=== PATIENT | female | born 1960 | race Caucasian/White ===

== ENCOUNTER 2017-07-13 03:31 | Observation (INO) | payer OTHER ==
[~2017-07-13] VITALS: Ht 154.9 cm; Wt 63.5 kg
[~2017-07-13 03:31] MED LIST: DITROPAN XL15 M1 PO; LIVALO4 M1 PO; MELOXICAM15 M1 PO; NEXIUM40 M1 PO; PATADAY2.5 ML OU; TYLENOL PM EX-1 EACH PO; UNITHROID88 MCG PO; VITAMIN D1000 UNIT PO
--- NOTE | 2017-07-13 13:57 | Operative Report ---
Operative/Inv Procedure Report Surgery Date: 07/13/17 Name of Procedure: Bilateral breast reduction Liposuction of axillary folds Pre-Operative Diagnosis: Symptomatic macromastia Lipodystropy of axillary folds Post-Operative Diagnosis: Symptomatic macromastic lipodystrophy of axillary folds Estimated Blood Loss: less than 50ml Surgeon/Assembler [employer]: Titus Cho MD Anesthesia: general endotracheal tube Monitors: NA IV Fluids: 1 liter crystalloids Implants: NA Urine Output: NA Drains: NA Specimens: Right breast tissue-322 grams Left breast tissue-348 grams Microbiology: None Tourniquet: NA Complications: None Condition: Stable Operative Indication: 57 yo female with symptomatic macromastic and lipodystrophy of axillary folds presents for bilateral breast reduction, liposuction of axillary folds. The procedure, risks, benefits, and alternatives discussed with patient. The risks discussed included bleeding, infection, pain, scarring, wound dehiscence, wound delay, asymmetry, hematoma, seroma, fat necrosis, and unsatisfactory results. Knowing these risks the patient agreed to the procedure. Knowing these risks the patient agreed to the procedure. Operative/Procedure Note Note: The patient taken to the operating room and placed in supine position. SCD's were placed on the lower extremities. Antibiotics administered. Breasts and lateral chest wall prepped and draped in the usual sterile fashion. Pre-op markings reviewed. The right breast pre-op markings incised. Right superomedial pedicle created with a 42 mm cookie cutter then de-epithelized. Cornejo pattern markings incised. Right breast tissue excised in a C-shaped fashion from medially to laterally. Breast tissue weighed 322 grams and sent to pathology. Wound irrigated. Hemostasis achieved.Triple points from cornejo pattern technique reapproximated with 2-0 silk. Skin edges tailored tacked with lynda. Good contour noted. Attention was then turned to the left breast. Left superomedial pedicle created with a 42 mm cookie cutter then de-epithelized. Cornejo pattern markings incised. Left breast tissue excised in a C-shaped fashion from medially to laterally. Breast tissue weighed 348 grams and sent to pathology. Wound irrigated. Hemostasis achieved.Triple points from the cornejo pattern technique reapproximated with 2-0 silk. Skin edges tailored tacked with lynda. Good contour noted. Next, 200 cc of tumescence solution was injected into the subcutaneous tissue of the left and right axillary folds. Attention was then turned to the incision at the inframammary fold were reapproximated with 3-0 Vicryl in an interrupted fashion followed by a running 4-0 subcuticular closure. Next, the left nipple areolar complex was approximated with 42 mm cookie cutter template on the breast mound measuring 5 cm from the inframammary fold. Skin and minimal breast tissue excised. Nipple areolar complex delivered appeared to be viable, secured with 3-0 monocryl in an interrupted fashion followed by 4-0 monocryl. Attention was then turned to right breast. Incision at the inframammary fold were reapproximated with 3-0 Vicryl in an interrupted fashion followed by a running 4-0 subcuticular closure. Next, right nipple areolar complex approximated with 42 mm cookie cutter template on the breast mound measuring 5 cm from the inframammary fold. Skin and minimal breast tissue excised. Nipple areolar complex delivered appeared to be viable, secured with 3- 0 monocryl in an interrupted fashion followed by 4-0 monocryl. Next, 4-0 mckeon cannula was used for liposuction of the left and right axilla folds. A total of 230 cc of lipoaspirate was removed. Minimall swelling noted on the axillary folds left greater than right. Remaining inframammary incision was reapproximated with 3-0 vicryl and 4-0 monocryl. Dermabond, telfa, tegaderm, and surgical bra placed. Counts were correct. The patient tolerated the procedure well, extubated, and returned to the recovery room in stable condition. Findings: 230 cc - lipoaspirate Left breast tissue-348 grams Right breast tissue- 322 grams Discharge Disposition: PACU
--- NOTE | 2017-07-13 15:02 | Event Note ---
Event Note Event Note: AT THE DIRECTION OF DR MARQUEZ, THIS PATIENT WILL BE PLACED IN OBSERVATION OVERNIGHT TO OBSERVE FOR A CONCERN FOR LEFT AXIILLARY BLEEDING AND POSSIBLE AXILLARY HEMATOMA FORMATION.
--- NOTE | 2017-07-13 15:07 | Patient Discharge Instructions ---
Discharge Instructions General Discharge Information You were seen/treated for: Symptomatic macromastia Lipodystropy of axillary folds You had these procedures: Surgery Date: 07/13/17 Name of Procedure: Bilateral breast reduction Liposuction of axillary folds Watch for these problems: FEVER>101.3, INCREASED PAIN, INCREASED REDNESS/SWELLING/DRAINAGE, DIZZINESS, SHORTNESS OF BREATH, CHEST PAINS Do not soak the wound: No Daily wet to dry dressings: No No bath, but you may shower: Yes Other wound care: SEE PRE-PRINTED INSTRUCTIONS Special Instructions: NO HEAVY LIFTING. NO STRENUOUS ACTIVITY, NO DRIVINFG Diet Continue normal diet: Yes Recommended Diet: Regular Activity Full Activity/No Limits: No Activity Self Limited: Yes Pounds, do NOT lift more than: 10 Other activity limits: Ambulate Acute Coronary Syndrome Inclusion Criteria At DC or during hospital stay patient has or had the following: ACS DIAGNOSIS No Discharge Core Measures Meds if any: Prescribed or Continued at Discharge Meds if any: NOT Prescribed or Continued at Discharge No NICOLAS/ARB d/t Medication Refused Congestive Heart Failure Inclusion Criteria At DC or during hospital stay patient has or had the following: CHF DIAGNOSIS No Discharge Core Measures Meds if any: Prescribed or Continued at Discharge NICOLAS/ARB for EF <40% No Meds if any: NOT Prescribed or Continued at Discharge Cerebrovascular accident Inclusion Criteria At DC or during hospital stay patient has or had the following: CVA/TIA Diagnosis No Discharge Core Measures Meds if any: Prescribed or Continued at Discharge Antithrombotic No Statin (required if LDL =>70) No Anticoagulant No Meds if any: NOT Prescribed or Continued at Discharge Venous thromboembolism Inclusion Criteria VTE Diagnosis No VTE Type NONE VTE Confirmed by (Test) NONE Discharge Core Measures - Per Current guidelines, there needs to be overlap - treatment for the first 5 days of Warfarin therapy. - If discharged on Warfarin prior to 5 days of - overlap therapy, the patient will need to be - assessed for post discharge needs including - *Post discharge parental anticoagulation - *Warfarin and/or parental anticoagulation education - *Follow up date to check INR post discharge At least 5 days overlap therapy as Inpatient No Meds if any: Prescribed or Continued at Discharge Warfarin No Note: Overlap Therapy is Warfarin and Anticoagulant Meds if any: NOT Prescribed or Continued at Discharge
[2017-07-13 16:40] VITALS: BP 128/80
[2017-07-13 18:50] VITALS: BP 124/80
--- NOTE | 2017-07-13 19:08 | PN- Plastic Surgery ---
Subjective Subjective: POC feeling ok, no n/v, no cp/sob. some discomfort at incisions, left axilla Objective Vital Signs and I&Os 124/80 hr 95 rr 20 96 on RA Physical Exam: gen- nad card- s1s2 pulm- no audible wheeze breast/incisions- eccymosis left axilla- soft, does not exceed marked borders. ttp. incisions w steris- clean & dry. Assessment/Plan Assessment/Plan A- POD0 sp bl breast reduction, liposuction, with postop hematoma of left axilla , kept in hospital as observation ststus for close monitoring, currently stable with no worsening of hematoma. P- pt examined by myself and Dr. Cho. Hematoma stable, VS stable. Continue Q4 VS and wound checks. Keep NPO overnight. PRN pain meds. No NSAIDS or anticoagulation. Attending to see in am. Core Measures Venous Thromboembolism VTE Risk Factors Surgery No Mechanical VTE Prophylaxis d/t N/A MechProphylax Ordered No VTE Pharm Prophylaxis d/t Surgical Contraindication
--- NOTE | 2017-07-13 19:28 | PN- Plastic Surgery ---
Surgical Brief Attending Note Brief Attending Note: Patient seen at bedside after earlier examination in PACU for suspected left axillary hematoma after bilateral breast reduction with liposuction of axillary folds. Patient resting comfortably in bed c/o mild left axillary pain. Afebrile, vital signs stable. Left axilla-moderate swelling with ecchymosis within confines of markings, soft, minimal tenderness Left breast-soft, non-tender, dressing with minimal saturation Right axilla-minimal swelling and ecchymosis, minimal tenderness Right breast-soft, non-tender, dressing in place A/P: 57 yo female s/p bilateral breast reduction, liposuction of axillary folds with stable moderate left axillary swelling most likely hemtoma -No surgical intervention at this time -Clinical observation -Surgical bra with pressure dressing -IVF -Pain control -Incentive spirometry -SCD's -D/C planning for AM -Plan discussed with patient family, nursing and PA staff
[2017-07-13 22:47] VITALS: BP 140/80
[2017-07-14 00:03] VITALS: BP 110/70
[2017-07-14 02:51] VITALS: BP 110/74
[2017-07-14 06:44] VITALS: BP 124/84
[2017-07-14] MEDS ORDERED: TRAMADOL HCL50 M1 PO (07:50)
--- NOTE | 2017-07-14 07:50 | PN- Plastic Surgery ---
See Addendum Subjective Subjective: POD#1 S/P LEFT BREAST REDUCTION/LIPOSUCTION COMFORTALE OVERNIGHT PAIN WELL CONTROLLED DENEIS CP, SOB, NO N+V WITH DEIT Objective Vital Signs and I&Os Vital Signs Date Time Temp Pulse Resp B/P B/P Pulse O2 O2 Flow FiO2 Mean Ox Delivery Rate 07/14 0644 98.2 80 20 124/84 96 Room Air 07/14 0251 97.7 83 20 110/74 94 Room Air 07/14 0003 84 20 110/70 94 Room Air 07/13 2247 98.1 90 18 140/80 94 07/13 1850 97.0 95 20 124/80 96 Room Air 07/13 1640 97.9 91 18 128/80 94 Room Air Room Air Intake & Output 07/14 0800 07/14 0000 07/13 1600 07/13 0800 07/13 0000 07/12 1600 Intake Total 865 Output Total 800 1600 Balance -800 -735 Intake, IV 625 Intake, Oral 240 Output, Urine 800 1600 Patient 140 lb Weight Physical Exam: CV: RRR LUNGS; CLEAR ABD: SOFT, +BS EXT: LEFT AXIALLRY HEMATOMA MINIMAL PAIN TO PALP DISTAL CMS INTACT BILAT DRSG DRY Assessment/Plan Assessment/Plan SURGICAL STABLE IN OBSERVATION PLAN D/C IVF, REGULAR DIET OOB/AMBULATE DR MARQUEZ TO SEE THIS AM LIKELY D/C HOME LATER THIS AM Core Measures Venous Thromboembolism VTE Risk Factors Surgery No Mechanical VTE Prophylaxis d/t N/A MechProphylax Ordered No VTE Pharm Prophylaxis d/t Surgical Contraindication
--- NOTE | 2017-07-14 07:55 | Surg Short-stay <48hrs Dis Sum ---
Visit Information Visit Dates Admission Date: 07/13/17 Discharge Date: 07/14/17 Surgical Short Stay DC Summary Admission Diagnosis: Symptomatic MACROMASTIA lipodystrophy of axillary folds Final Diagnosis: Symptomatic macromastia Lipodystrophy of axillary folds Procedure(s): Bilateral breast reduciton Suction assisted liposuction of axillary folds Summary/Significant Findings: 57 yo female with history of symptomatic macromastia and axillary lipodystrophy underwent bilateral breast reduction with suction assisted liposuction of the axillary folds. Patient admitted for observation after surgery due to left axillary swelling most likey due to seroma/hematoma. Patient remained hemodynamically stable overnight. Physical examination noted to have stable, soft, left axillary swelling with ecchymosis. Patient tolerated breakfast in AM. Complained of mild left axillary discomfort. Ambulating. Ready for discharge. Condition at Discharge: STABLE Discharge Disposition: home or self care Discharge instructions provided to patient/family: Yes Post discharge follow-up plan: F/U WITH DR MARQUEZ ON THURSDAY, July 15 at 12noon. Copies to: Marquis SANTIAGO,Titus
[2017-07-14 08:58] LABS: ABSOLUTE BASOPHIL COUNT 0 /CUMM (0.0-0.2); ABSOLUTE EOSINOPHIL COUNT 0 /CUMM (0.0-0.7); ABSOLUTE GRANULOCYTE CT 4.2 /CUMM (1.4-6.5); ABSOLUTE LYMPH COUNT 1.9 /CUMM (1.2-3.4); BASOPHIL % 0.2 % (0.0-2.0); EOSINOPHIL % 0.3 % (0-5); GRANULOCYTE % 59.2 % (42.2-75.2); HEMATOCRIT 29.5 % (37-47); MEAN CORPUSCULAR HGB 30.4 PG (27.0-31.0); MEAN CORPUSCULAR HGB CONC 33.5 G/DL (33.0-37.0); MEAN CORPUSCULAR VOLUME 90.7 FL (81.0-99.0); MEAN PLATELET VOLUME 8.2 FL (7.4-10.4); PLATELET COUNT 220 /CUMM (130-400); RBC DISTRIBUTION WIDTH 12.5 % (11.5-14.5); RED BLOOD CELL CT 3.25 /CUMM (4.20-5.40)
--- NOTE | 2017-07-14 09:26 | PN- Plastic Surgery ---
Surgical Brief Attending Note Brief Attending Note: No events overnight. Remained hemodynamically stable during the evening. Patient sitting up in bed c/o mild left axillary discomfort. Tolerated breakfast. Afebrile, vital signs stable Breasts-soft, non-tender, nipple areolar complexes viable Axilla-left: moderate swelling and ecchymosis, soft, minimum tenderness, stable right: minimal swelling and ecchymosis, soft, non-tender A/P: 57 yo female s/p bilateral breast reduction with liposuction of axillary folds -D/C home today -Regular diet -Compression dressing with surgical bra or sports bra at all times -Toradol or Tylenol for pain -May shower -No driving, heavy lifting, or strenuous activities -No NSAIDs -Observe for increased pain, swelling, ecchymosis, dizziness, T>101, fever or chills. Call with any questions or concerns. -Follow-up at office tomorrow afternoon -Plan discussed with patient, , surgical and nursing staff
== END 2017-07-14 09:29 ==
LOC: STS 03:31 → PACUH 14:42 → ENRESERV 14:52 → ENTRNSPT 16:04 → EDTRNSPT 16:06 → EDTRNSPTSTS 16:06 → 2NA 16:15 → CMPTRNSPT 16:32 → ENPENDDIS 07-14 08:02 → 2NA 07-14 09:29
PROVIDERS: Physician Assistant
DX: N62 Hypertrophy of breast (principal); Z85.850 Personal history of malignant neoplasm of thyroid; J45.909 Unspecified asthma, uncomplicated; N30.10 Interstitial cystitis (chronic) without hematuria; R00.2 Palpitations; E78.5 Hyperlipidemia, unspecified; F41.9 Anxiety disorder, unspecified; F32.9 Major depressive disorder, single episode, unspecified; Z87.891 Personal history of nicotine dependence; K21.9 Gastro-esophageal reflux disease without esophagitis; M54.5 Low back pain
CPT/HCPCS: 6030; 36415; 82436; 96374; 96375; C9399; G0378; J0131; J0171; J0690; J2001; J7042